=== PATIENT | male | born 1940 | race Caucasian/White ===

== ENCOUNTER 2017-03-17 21:55 | Emergency (ER) | payer OTHER ==
--- NOTE | 2017-03-17 22:33 | RAD ---
EXAM DESCRIPTION: Knee,Right Complete CLINICAL HISTORY: 76 years Male Fall COMPARISON: None. TECHNIQUE: Three view FINDINGS: No acute fractures or dislocations are identified. No osseous destructive lesions. Small effusion is noted. Total knee prosthesis with anatomic alignment. IMPRESSION: No acute fracture is identified. Total knee prosthesis with anatomic alignment and minimal joint fluid Electronically signed by: Hannah Barriga 03/17/2017 10:33 PM CDT
[2017-03-17] MEDS ORDERED: ACETAMINOPHEN 500 MG TAB PO ONE (23:06)
[2017-03-17 23:14] VITALS: O2SAT 97
--- NOTE | 2017-03-17 23:34 | ED.PDOC ---
History of Present Illness - General Chief Complaint: Lower Extremity Injury Stated Complaint: right knee pain Time Seen by Provider: 03/17/17 23:06 Source: patient, RN notes reviewed, Vital Signs reviewed Additional Information: Patient fell down 6 flights of stairs with and landed on his left knee. He has a history of a left knee replacement. He was able to bear weight but reports left medial knee pain. No obvious deformity on exam. - History of Present Illness Occurred: just prior to arrival Pain - Lower Extremity: moderate: Right Knee Method of Injury: fell Improving Factors: immobilization Worsening Factors: movement Allergies/Adverse Reactions: Allergies NO KNOWN ALLERGY Allergy (Verified 03/17/17 22:09) Review of Systems - Review of Systems Constitutional: States: no symptoms reported EENTM: States: no symptoms reported Respiratory: States: no symptoms reported Cardiology: States: no symptoms reported Gastrointestinal/Abdominal: States: no symptoms reported Genitourinary: States: no symptoms reported Musculoskeletal: States: see HPI Skin: States: no symptoms reported Neurological: States: no symptoms reported Endocrine: States: no symptoms reported Hematologic/Lymphatic: States: no symptoms reported Past Medical History (General) - Patient Medical History Surgical History: other - Right knee replacement Family Medical History - Family History Grandparents Family History: Unknown Physical Exam - Physical Exam General Appearance: Alert, Comfortable - at rest, No apparent distress - at rest , but he is in some pain with movement of his knee or ambulation, Well Developed , Well Groomed, Well Hydrated, Well Nourished Eyes, Ears, Nose, Throat: PERRL/EOMI, normal ENT inspection Neck: non-tender, full range of motion, supple Cardiovascular/Respiratory: regular rate, rhythm, normal peripheral pulses, no respiratory distress Gastrointestinal/Abdominal: non-tender Back: normal inspection Thigh/Hip: normal inspection, non-tender, no evidence of injury, normal ROM Leg: normal inspection, non-tender, no evidence of injury, normal ROM Knee: no evidence of injury, other - Evidence of well-healed linear laceration consistent with hsitory of knee replacement Ankle: normal inspection, non-tender, no evidence of injury, normal ROM Foot: normal inspection, non-tender, no evidence of injury, normal ROM Neuro/Tendon: normal sensation, normal motor functions, responds to pain Mental Status: alert, oriented x 3 Skin: normal color - without evidence of laceration Progress - Progress Progress: 03/18/17 00:06 Patient with medial right knee pain. No obvious deformity. Right Knee X-ray: IMPRESSION: No acute fracture is identified. Total knee prosthesis with anatomic alignment and minimal joint fluid 03/18/17 00:07 Pt stable for d/c home. Recommended he ambulate with assistance. Pt refused crutches saying that he can use a friend's walker at home. - Results/Orders Results/Orders: 03/17/17 23:13 Pulse Rate [ 72 monitor] Respiratory 16 Rate Blood Pressure 110/72 [Right Arm] O2 Sat by Pulse 97 Oximetry Departure - Departure Clinical Impression: Contusion of knee, right Qualifiers: Encounter type: initial encounter Qualified Code(s): S80.01XA - Contusion of right knee, initial encounter Fall Qualifiers: Encounter type: initial encounter Qualified Code(s): W19.XXXA - Unspecified fall, initial encounter Time of Disposition: 00:18 Disposition: Discharge to Home or Self Care Condition: Fair Departure Forms: ED Discharge - Pt. Copy, Patient Portal Self Enrollment Instructions: DI for Contusion Additional Instructions: Use walker or crutches as needed to get around. Take Tylenol over the counter (follow label instructions) as needed for pain control. Ice to knee 3 to 4 times a day to help with swelling and pain.
[2017-03-18 00:33] VITALS: BP 117/76; TEMP 97
== END 2017-03-18 00:57 | disposition home or self-care (01) ==
LOC: ER 21:55
DX: S80.01XA Contusion of right knee, initial encounter (principal); Z96.652 Presence of left artificial knee joint; Z96.651 Presence of right artificial knee joint; W10.9XXA Fall (on) (from) unspecified stairs and steps, initial encounter; Y92.9 Unspecified place or not applicable